=== PATIENT | female | born 1990 | race Two or more races ===

== ENCOUNTER 2022-07-03 09:59 | Emergency (ER) | payer MEDICAID, OTHER ==
[~2022-07-03] VITALS: Ht 167.6 cm; Wt 104.0 kg
[2022-07-03 10:42] LABS: BUN/Creatinine Ratio 16.4; Basophils # (auto) 0 10 ^3/uL (0-0.2); Basophils % (auto) 0.5 % (0.0-2.0); Calcium 9.1 mg/dL (8.5-10.1); Eosinophils # (auto) 0 10 ^3/uL (0-0.8); Eosinophils % (auto) 0.4 % (0.0-7.0); Hematocrit 40.5 % (36.0-46.0); Hemoglobin 13.8 g/dL (12.2-16.2); Lymphocytes # (auto) 1.8 10 ^3/uL (0.4-5.4); Lymphocytes % (auto) 18.5 % (10.0-50.0); Mean Corpuscular Hemoglobin 30.6 pg (28.0-32.0); Mean Corpuscular Volume 90.2 fL (80.0-100.0); Monocytes # (auto) 0.5 10 ^3/uL (0-1.3); Monocytes % (auto) 4.9 % (0.0-12.0); Neutrophils # (auto) 7.2 10 ^3/uL (1.6-8.6); Neutrophils % (auto) 75.7 % (37.0-80.0); Nucleated Red Blood Cells % 0.1 %; Potassium 3.9 mmol/L (3.5-5.1); Red Blood Cells 4.49 10^6/uL (4.0-5.20); Red Cell Distribution Width 12.4 % (11.8-14.3); White Blood Cell 9.5 10^3/uL (4.4-10.8)
[2022-07-03 10:58] LABS: Urine Bacteria NONE SEEN /hpf (None Seen); Urine Blood Negative /uL (Negative); Urine Mucus FEW (None Seen); Urine Specific Gravity 1.029 (1.001-1.035); Urine WBC 1 /hpf (0 - 5)
[2022-07-03 12:05] VITALS: BP 103/51
[2022-07-03] MEDS ORDERED: METOCLOPRAMIDE HCL 5MG/ml INJ 2ml VIAL IV ONE (12:15)
[2022-07-03] MEDS ORDERED: SODIUM CHLORIDE 0.9% 1,000 ML IV ONE (12:15)
[2022-07-03] MEDS ORDERED: ONDA-144 PO ×2 (14:05→14:06)
== END 2022-07-03 14:23 | disposition home or self-care (01) ==
LOC: ER 10:04
DX: O21.0 Mild hyperemesis gravidarum (principal); Z3A.13 13 weeks gestation of pregnancy
CPT/HCPCS: 36415; 80048; 81001; 81025; 84702; 85025; 96361; 96374; 99283; J2765; J7030

== ENCOUNTER 2023-01-03 17:37 | Observation (INO) | payer MEDICAID ==
[~2023-01-03 17:37] MED LIST: ONDA-144 PO
[2023-01-03] MEDS ORDERED: PREN-96 PO (18:27)
[2023-01-03 19:16] LABS: Amphetamine Screen, Urine NEGATIVE (NEGATIVE); Barbiturate Scree,Urine NEGATIVE (NEGATIVE); Benzodiazephine Screen, Urine NEGATIVE (NEGATIVE); Cannabinoid Screen, Urine NEGATIVE (NEGATIVE); Cocaine Screen, Urine NEGATIVE (NEGATIVE); Opiate Scree,Urine NEGATIVE (NEGATIVE); Phencyclidine Screen, Urine NEGATIVE (NEGATIVE)
[2023-01-03 19:26] LABS: Basophils # (auto) 0.2 10 ^3/uL (0-0.2); Basophils % (auto) 1.4 % (0.0-2.0); Eosinophils # (auto) 0.1 10 ^3/uL (0-0.8); Eosinophils % (auto) 1.1 % (0.0-7.0); Hematocrit 33.1 % (36.0-46.0); Hemoglobin 11.6 g/dL (12.2-16.2); Lymphocytes # (auto) 1.9 10 ^3/uL (0.4-5.4); Lymphocytes % (auto) 14.7 % (10.0-50.0); Mean Corpuscular Hemoglobin 29.8 pg (28.0-32.0); Mean Corpuscular Hgb Conc. 34.9 g/dL (32.0-36.0); Mean Corpuscular Volume 85.2 fL (80.0-100.0); Monocytes # (auto) 0.6 10 ^3/uL (0-1.3); Neutrophils # (auto) 9.8 10 ^3/uL (1.6-8.6); Neutrophils % (auto) 77.8 % (37.0-80.0); Red Blood Cells 3.88 10^6/uL (4.0-5.20); Red Cell Distribution Width 14.1 % (11.8-14.3); White Blood Cell 12.6 10^3/uL (4.4-10.8)
[2023-01-03 19:30] LABS: Protein, Urine 48.7 mg/dL (0.0-11.9)
[2023-01-03 20:06] LABS: Albumin 2.7 g/dL (3.4-5.0); Calcium 8.9 mg/dL (8.5-10.1); INR 0.86 (0.9-1.15); Partial Thromboplastin Time 24.8 sec (24.6-33.4); Potassium 3.9 mmol/L (3.5-5.1)
[2023-01-03 20:11] LABS: BUN/Creatinine Ratio 13.1; Bilirubin, Total 0.2 mg/dL (0.2-1.0); Total Protein 6.3 g/dL (6.4-8.2); Uric Acid 4.6 mg/dL (2.6-6.0)
== END 2023-01-03 21:47 | disposition home or self-care (01) ==
LOC: LDRP 17:37
PROVIDERS: ADMIT Obstetrics & Gynecology; ATTEND Obstetrics & Gynecology
DX: O26.893 Other specified pregnancy related conditions, third trimester (principal); N89.8 Other specified noninflammatory disorders of vagina; Z3A.39 39 weeks gestation of pregnancy; Z79.899 Other long term (current) drug therapy
CPT/HCPCS: 36415; 59025; 76818; 80053; 80307; 81002; 82570; 84112; 84156; 84550; 85025; 85362; 85379; 85610; 85730; 94760; G0378; Q0114

== ENCOUNTER 2023-01-09 08:03 | Inpatient (IN) | payer MEDICAID ==
[~2023-01-09] VITALS: Ht 167.6 cm; Wt 126.1 kg
[~2023-01-09 08:03] MED LIST changes: +PREN-96 PO
[2023-01-09] MEDS ORDERED: PROMETHAZINE HCL 25 MG/ML 1ML IV PRN (13:00)
[2023-01-09] MEDS ORDERED: WITCH HAZEL-GLYCERIN PAD TOP PRN (13:00)
[2023-01-09] MEDS ORDERED: LIDOCAINE 2%HCL (LOCAL ANESTH.) INJ 20ML MDV IJ PRN (13:00)
[2023-01-09] MEDS ORDERED: BUTORPHANOL TARTRATE 2 MG/1 ML VIAL IV PRN ×2 (13:00)
[2023-01-09] MEDS ORDERED: DERMOPLAST 60ML BOTTLE TOP PRN (13:00)
[2023-01-09] MEDS ORDERED: LACT. RINGERS/OXYTOCIN 20UNITS 500 ML IV ONE ×2 (13:00→13:30)
[2023-01-09] MEDS ORDERED: PHISODERM TOP SOLN 240ML BTL TOP PRN (13:00)
[2023-01-09] MEDS: LACTATED RINGER'S 1,000 ML IV SCH ×2 (13:42→16:20)
[2023-01-09 14:01] LABS: Basophils # (auto) 0 10 ^3/uL (0-0.2); Basophils % (auto) 0.3 % (0.0-2.0); Eosinophils # (auto) 0.1 10 ^3/uL (0-0.8); Eosinophils % (auto) 0.5 % (0.0-7.0); Hematocrit 33.9 % (36.0-46.0); Hemoglobin 11.5 g/dL (12.2-16.2); Lymphocytes # (auto) 1.6 10 ^3/uL (0.4-5.4); Lymphocytes % (auto) 14.3 % (10.0-50.0); Mean Corpuscular Hemoglobin 28.7 pg (28.0-32.0); Mean Corpuscular Hgb Conc. 33.8 g/dL (32.0-36.0); Mean Corpuscular Volume 85.1 fL (80.0-100.0); Monocytes # (auto) 0.8 10 ^3/uL (0-1.3); Monocytes % (auto) 7.4 % (0.0-12.0); Neutrophils # (auto) 8.8 10 ^3/uL (1.6-8.6); Neutrophils % (auto) 77.5 % (37.0-80.0); Nucleated Red Blood Cells % 0.1 %; Red Blood Cells 3.99 10^6/uL (4.0-5.20); Red Cell Distribution Width 13.8 % (11.8-14.3); White Blood Cell 11.3 10^3/uL (4.4-10.8)
[2023-01-09 14:08] LABS: Urine Bacteria FEW /hpf (None Seen); Urine Blood Negative /uL (Negative); Urine Hyaline Cast FEW /lpf (0 - 2); Urine Specific Gravity 1.022 (1.001-1.035); Urine WBC 31 /hpf (0 - 5)
[2023-01-09 14:16] LABS: Amphetamine Screen, Urine NEGATIVE (NEGATIVE); Barbiturate Scree,Urine NEGATIVE (NEGATIVE); Benzodiazephine Screen, Urine NEGATIVE (NEGATIVE); Cannabinoid Screen, Urine NEGATIVE (NEGATIVE); Cocaine Screen, Urine NEGATIVE (NEGATIVE); Opiate Scree,Urine NEGATIVE (NEGATIVE); Phencyclidine Screen, Urine NEGATIVE (NEGATIVE)
[2023-01-09 14:16] LABS: INR 0.87 (0.9-1.15); Partial Thromboplastin Time 26.2 sec (24.6-33.4)
[2023-01-09 14:18] LABS: Albumin 2.7 g/dL (3.4-5.0); Calcium 8.3 mg/dL (8.5-10.1); Potassium 3.7 mmol/L (3.5-5.1)
[2023-01-09 14:23] LABS: BUN/Creatinine Ratio 16.7; Bilirubin, Total 0.2 mg/dL (0.2-1.0); Total Protein 6.2 g/dL (6.4-8.2); Uric Acid 4.8 mg/dL (2.6-6.0)
[2023-01-09 15:24] LABS: Protein, Urine 32.6 mg/dL (0.0-11.9)
[2023-01-09] MEDS ORDERED: ePHEDrine SULFATE 50 MG/ML AMP ONE (15:56)
[2023-01-09] MEDS ORDERED: ROPIVACAINE HCL 200 ML ONE (15:56)
[2023-01-09] MEDS ORDERED: Lidocaine W-Epinephrine 1.5%-1:200,000 INJ 10ml Vial ONE (15:58)
[2023-01-09] MEDS ORDERED: ePHEDrine SULFATE 50 MG/ML AMP IV ONE (16:00)
[2023-01-09] MEDS ORDERED: LACTATED RINGER'S 500 ML IV ONE (16:00)
[2023-01-09] MEDS ORDERED: ROPIVACAINE HCL 200 ML EPI SCH (16:00)
[2023-01-09] MEDS ORDERED: NALOXONE HCL 0.4 MG/ML VIAL IV ONE (16:00)
[2023-01-09] MEDS ORDERED: METHYLERGONOVINE MALEATE 0.2 MG/ML AMP IM PRN (16:45)
[2023-01-09] MEDS ORDERED: miSOPROStol 100 mcg TAB PR PRN (16:45)
[2023-01-09] MEDS ORDERED: IBUPROFEN 600 MG TAB PO PRN (19:45)
[2023-01-09] MEDS ORDERED: ONDANSETRON ODT 4 MG TAB PO PRN (19:45)
[2023-01-09] MEDS: ACETAMINOPHEN 325 MG TAB PO PRN (20:06)
[2023-01-09] MEDS: DOCUSATE SOD 100 MG CAP PO SCH (22:05)
[2023-01-09 23:00] VITALS: BP 121/58
[2023-01-10 03:00] VITALS: BP 106/72
[2023-01-10 06:07] LABS: RPR Non Reactive (Non Reactive)
[2023-01-10 07:05] VITALS: BP 122/69
[2023-01-10 11:00] VITALS: BP 117/76
[2023-01-10 15:00] VITALS: BP 120/70
[2023-01-10] MEDS: ACETAMINOPHEN 325 MG TAB PO PRN ×2 (17:02→18:48)
[2023-01-10 18:45] VITALS: BP 121/73
[2023-01-10] MEDS: DOCUSATE SOD 100 MG CAP PO SCH (21:52)
[2023-01-10 22:30] VITALS: BP 116/57
[2023-01-11 02:40] VITALS: BP 121/62
[2023-01-11 06:45] VITALS: BP 139/68
[2023-01-11 11:00] VITALS: BP 144/74
[2023-01-11 13:14] VITALS: BP 144/74
== END 2023-01-11 11:52 | disposition home or self-care (01) | DRG 560 ==
LOC: LDRP 08:03 → OBSVTOIN 12:45 → LDRP 12:46
PROVIDERS: ADMIT Obstetrics & Gynecology; ATTEND Obstetrics & Gynecology
PROC: 10E0XZZ Delivery of Products of Conception, External Approach (ICD-10-PCS; principal; 2023-01-09)
PROC: 10907ZC Drainage of Amniotic Fluid, Therapeutic from Products of Conception, Via Natural or Artificial Opening (ICD-10-PCS; 2023-01-09)
PROC: 3E0R3BZ Introduction of Anesthetic Agent into Spinal Canal, Percutaneous Approach (ICD-10-PCS; 2023-01-09)
PROC: 00HU33Z Insertion of Infusion Device into Spinal Canal, Percutaneous Approach (ICD-10-PCS; 2023-01-09)
DX: O48.0 Post-term pregnancy (principal); Z37.0 Single live birth; E66.01 Morbid (severe) obesity due to excess calories; Z20.822 Contact with and (suspected) exposure to COVID-19; O99.214 Obesity complicating childbirth; Z3A.40 40 weeks gestation of pregnancy
CPT/HCPCS: 36415; 59409; 62282; 76818; 80053; 80307; 81001; 82570; 84156; 84550; 85025; 85610; 85730; 86592; 86850; 86900; 86901; 87426; 94760; 94762; 96360; 96361; G0378; J2590; Q0162